=== PATIENT | male | born 1965 | race American Indian/Alaskan Native ===

== ENCOUNTER 2017-04-29 20:07 | Emergency (ER) | payer SELFPAY ==
[2017-04-29 20:19] VITALS: BP 144/97
[2017-04-29] MEDS ORDERED: BOOSTRIX IM ONE (21:11)
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
[2017-04-29] MEDS ORDERED: THERMAZENE 50 GRAM TP ONE ×3 (21:35→22:00)
== END 2017-04-29 21:49 | disposition home or self-care (01) ==
LOC: ED 20:07
DX: T25.221A Burn of second degree of right foot, initial encounter (principal); X11.8XXA Contact with other hot tap-water, initial encounter; Y93.89 Activity, other specified; Y92.89 Other specified places as the place of occurrence of the external cause; Y99.8 Other external cause status
CPT/HCPCS: 90471; 90715; 99282

== ENCOUNTER 2018-11-17 01:11 | Emergency (ER) | payer SELFPAY ==
[2018-11-17 01:25] VITALS: BP 114/84
--- NOTE | 2018-11-17 03:03 | Emergency Department Report ---
Chief Complaint: High BP Stated Complaint: HIGH BP Time Seen by Provider: 11/17/18 02:47 - HPI History of Present Illness: 53 y/o male comes in thinking his blood pressure. Patient denies any any chest pain headache or change of vision. Reports that he has right side - Exam Vital Signs: Vital Signs 11/17/18 01:23 Temperature 97.5 F L Pulse Rate 86 Respiratory 20 Rate Blood Pressure 114/84 O2 Sat by Pulse 96 Oximetry MSE screening note: Focused history and physical exam performed. Due to findings the following was ordered: Patient has a stable blood pressure. As the patient he can take [id number] pain medicine. ED Disposition for MSE Clinical Impression: Chronic pain Disposition: Z- MED SCREENING EXAM-LEFT Is pt being admited?: No Does the pt Need Aspirin: No Condition: Stable Referrals: [facility] [Provider Group] - 3-5 Days
== END 2018-11-17 03:37 | disposition left against medical advice (07) ==
LOC: ED 01:11
DX: G89.29 Other chronic pain (principal); I10 Essential (primary) hypertension; R07.89 Other chest pain; R51 Headache
CPT/HCPCS: 99282

== ENCOUNTER 2020-09-14 22:49 | Emergency (ER) | payer SELFPAY ==
[2020-09-15 01:10] VITALS: BP 123/62
[2020-09-15] MEDS ORDERED: IBUPROFEN 600 MG TAB PO ONE (01:37)
[2020-09-15] MEDS ORDERED: ACETAMINOPHEN 325 MG TAB PO ONE (01:37)
[2020-09-15] MEDS ORDERED: ONDANSETRON 4 MG/2 ML INJ IV PRN (05:12)
[2020-09-15] MEDS ORDERED: ACETAMINOPHEN 325 MG TAB PO PRN (05:12)
[2020-09-15] MEDS ORDERED: HYDROcodone/ACETAMINOPHEN 5-325 MG TAB PO PRN (05:12)
[2020-09-15] MEDS ORDERED: ALUM-MAG HYDROXIDE-SIMETHICONE 200-200-20MG/5ML ORAL LIQD 30 ML PO PRN (05:12)
[2020-09-15] MEDS ORDERED: MORPHINE 4 MG/1 ML INJ IV PRN (05:12)
[2020-09-15] MEDS ORDERED: oxyCODONE /ACETAMINOPHEN 5-325MG TAB PO PRN (05:12)
[2020-09-15] MEDS ORDERED: SENNOSIDES 8.6 MG TAB PO PRN (05:12)
[2020-09-15] MEDS ORDERED: FAMOTIDINE 20 MG/2 ML INJ IV SCH (10:00)
== END 2020-09-15 12:07 | disposition left against medical advice (07) ==
LOC: ED 22:49
DX: M54.9 Dorsalgia, unspecified (principal); M25.579 Pain in unspecified ankle and joints of unspecified foot; Z53.21 Procedure and treatment not carried out due to patient leaving prior to being seen by health care provider

== ENCOUNTER 2020-11-14 07:10 | Emergency (ER) | payer OTHER ==
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
[2020-11-14 07:18] VITALS: BP 123/80
== END 2020-11-14 08:52 | disposition home or self-care (01) ==
LOC: ED 07:10
DX: M54.31 Sciatica, right side (principal); I10 Essential (primary) hypertension; F17.200 Nicotine dependence, unspecified, uncomplicated; Z79.899 Other long term (current) drug therapy; Z59.0 Homelessness
CPT/HCPCS: 99283

== ENCOUNTER 2021-03-07 18:28 | Emergency (ER) | payer OTHER ==
[2021-03-07 18:33] VITALS: BP 160/90
--- NOTE | 2021-03-07 22:57 | XRay Report ---
LUMBAR SPINE 3 VIEWS INDICATION / CLINICAL INFORMATION: open wound: s/p lumbar kyphoplasty 9 months ago. Patient reports a wound draining on the right side. COMPARISON: None available. FINDINGS: VERTEBRAE: No acute fracture. Mild degenerative anterolisthesis of L5 on S1. No vertebroplasty cement in the lumbar spine. DISC SPACES / FACET JOINTS:Mild discogenic spondylosis at L5-S1. PARASPINAL SOFT TISSUES:No significant abnormality. ADDITIONAL FINDINGS: Internal fixation hardware of the right iliac wing. Signer Name: Jose Mera MD Signed: 03/07/2021 10:53 PM Workstation Name: [id number]
--- NOTE | 2021-03-07 23:56 | Emergency Department Report ---
ED Back Pain/Injury HPI - General Chief Complaint: Wound/Laceration Stated Complaint: SIDE PAIN, POSSIBLE WOUND INFECTION Source: EMS Limitations: No Limitations - History of Present Illness Initial Comments: Patient is a 56-year-old -[place] male with a history of hypertension and peptic ulcer disease who presented to the ED with complaint of acute onset persistent low back pain and bleeding postsurgical open wound on right lumbar sacral area for the last 12 hours. Patient states that he had an Internal fixation hardware of the right iliac wing about 9 months ago and 12 hours ago he woke up to bleeding from open wounds in the area where surgery was performed 9 months ago. Patient stated that he has also been having persistent pain and felt that the hardware may be dislodged and came to the ED for evaluation. Patient states that the surgery was performed in [facility] and he implored the EMS crew to take him to [facility] but they declined. Patient stated that the pain is mainly around the open postsurgical wound with intermittent bleeding. Patient denies fever, chills, nausea and vomiting, dizziness, syncope, numbness and tingling or weakness of lower extremities bilaterally, saddle paresthesia or urinary and bowel incontinence, nausea and vomiting, traumatic injury or fall, heavy lifting or abdominal pain. MD Complaint: back pain -: Sudden, hour(s) (12) Similar Symptoms Previously: No Place: home Radiation: none Severity: moderate Severity scale (0 -10): 4 Quality: dull, aching Consistency: constant Improves With: none Worsens With: movement, walking Context: unknown (spontaneous, s/p surgery of the illiac crest 9 months ago, wound dehiscence) Associated Symptoms: denies other symptoms. denies: confusion, weakness, chest pain, numbness, difficulty walking, cough, difficulty urinating, constipation, headaches, abdominal pain, loss of appetite, nausea/vomiting, rash, seizure, shortness of breath, syncope Treatments Prior to Arrival: acetaminophen - Related Data Previous Rx's Medication Instructions Recorded Last Taken Type Cephalexin [Keflex] 500 mg PO TID #21 capsule 10/18/13 Unknown Rx HYDROcodone/APAP 10-325 [[place] 1 each PO Q6HR PRN #20 tablet 10/18/13 Unknown Rx 10-325 mg TAB] Silver Sulfadiazine [Silvadene] 50 gm TP BID 7 Days cream..g. 04/29/17 Unknown Rx Ondansetron [Zofran Odt] 4 mg PO Q8HR PRN #14 tab.rapdis 02/24/18 Unknown Rx Ibuprofen [Motrin] 800 mg PO Q8HR PRN #20 tablet 11/14/20 Unknown Rx Lidocaine [Lidoderm] 1 each TP DAILY #30 adh..patch 11/14/20 Unknown Rx Ibuprofen [Motrin] 800 mg PO Q8HR PRN #30 tablet 03/07/21 Unknown Rx Sulfamethoxazole/Trimethoprim 1 each PO Q12H #20 tab 03/07/21 Unknown Rx [Bactrim DS TAB] traMADoL [Ultram] 50 mg PO Q6HR PRN #12 tablet 03/07/21 Unknown Rx Allergies Allergy/AdvReac Type Severity Reaction Status Date / Time No Known Allergies Allergy Verified 02/24/18 11:42 ED Review of Systems ROS: Stated complaint: SIDE PAIN, POSSIBLE WOUND INFECTION Other details as noted in HPI Constitutional: denies: chills, fever Eyes: denies: eye pain, eye discharge, vision change ENT: denies: ear pain, throat pain Respiratory: denies: cough, shortness of breath, wheezing Cardiovascular: denies: chest pain, palpitations Endocrine: no symptoms reported Gastrointestinal: denies: abdominal pain, nausea, diarrhea Genitourinary: denies: urgency, dysuria Musculoskeletal: back pain (Low back pain), other (Dehiscence of postsurgical wound). denies: joint swelling, arthralgia Skin: other (Postsurgical wound dehiscence in the lower back). denies: rash, lesions Neurological: denies: headache, weakness, paresthesias Psychiatric: denies: anxiety, depression Hematological/Lymphatic: denies: easy bleeding, easy bruising ED Past Medical Hx - Past Medical History Hx Hypertension: Yes Additional medical history: Peptic ulcers - Surgical History Additional Surgical History: right hip surgery - Social History Smoking Status: Current Every Day Smoker Substance Use Type: None - Medications Home Medications: Home Medications Medication Instructions Recorded Confirmed Last Taken Type Cephalexin [Keflex] 500 mg PO TID #21 capsule 10/18/13 Unknown Rx HYDROcodone/APAP 10-325 [[place] 1 each PO Q6HR PRN #20 tablet 10/18/13 Unknown Rx 10-325 mg TAB] Silver Sulfadiazine [Silvadene] 50 gm TP BID 7 Days cream..g. 04/29/17 Unknown Rx Ondansetron [Zofran Odt] 4 mg PO Q8HR PRN #14 tab.rapdis 02/24/18 Unknown Rx Ibuprofen [Motrin] 800 mg PO Q8HR PRN #20 tablet 11/14/20 Unknown Rx Lidocaine [Lidoderm] 1 each TP DAILY #30 adh..patch 11/14/20 Unknown Rx Ibuprofen [Motrin] 800 mg PO Q8HR PRN #30 tablet 03/07/21 Unknown Rx Sulfamethoxazole/Trimethoprim 1 each PO Q12H #20 tab 03/07/21 Unknown Rx [Bactrim DS TAB] traMADoL [Ultram] 50 mg PO Q6HR PRN #12 tablet 03/07/21 Unknown Rx ED Physical Exam - General Limitations: No Limitations General appearance: alert, in no apparent distress - Head Head exam: Present: atraumatic, normocephalic, normal inspection - Eye Eye exam: Present: normal appearance, PERRL, EOMI - ENT ENT exam: Present: normal exam, normal orophraynx, mucous membranes moist, TM's normal bilaterally, normal external ear exam - Neck Neck exam: Present: normal inspection, full ROM - Respiratory Respiratory exam: Present: normal lung sounds bilaterally. Absent: respiratory distress, wheezes, rales, rhonchi, chest wall tenderness, accessory muscle use, prolonged expiratory - Cardiovascular Cardiovascular Exam: Present: regular rate, normal rhythm, normal heart sounds. Absent: systolic murmur, diastolic murmur, rubs, gallop - GI/Abdominal GI/Abdominal exam: Present: soft, normal bowel sounds. Absent: distended, tenderness, guarding, hyperactive bowel sounds, hypoactive bowel sounds - Extremities Exam Extremities exam: Present: normal inspection, full ROM, normal capillary refill - Back Exam Back exam: Present: normal inspection, full ROM, tenderness (Palpable lumbosacral paraspinal musculoskeletal tenderness; postsurgical wound dehiscence in the right lumbosacral area), muscle spasm, paraspinal tenderness. Absent: CVA tenderness (L) - Neurological Exam Neurological exam: Present: alert, oriented X3, CN II-XII intact, normal gait, reflexes normal - Psychiatric Psychiatric exam: Present: normal affect, normal mood - Skin Skin exam: Present: warm, dry, intact, normal color, other (Postsurgical wound dehiscence on right lumbosacral area with localized tenderness). Absent: rash ED Course Vital Signs 03/07/21 18:32 Temperature 98.7 F Pulse Rate 86 Respiratory 18 Rate Blood Pressure 160/90 [Left] O2 Sat by Pulse 98 Oximetry ED Medical Decision Making - Radiology Data Radiology results: report reviewed, image reviewed [facility] [address] [place] [address] XRay Report Signed Patient: SANDHYA HILL MR#: [id number] : 1965 Acct:[id number] Age/Sex: 56 / M ADM Date: 03/07/21 Loc: ED Attending Dr: Ordering Physician: ELEANOR MOORE Date of Service: 03/07/21 Procedure(s): XR spine lumbosacral 2-3V Accession Number(s): [id number] cc: ELEANOR MOORE Fluoro Time In Minutes: LUMBAR SPINE 3 VIEWS INDICATION / CLINICAL INFORMATION: open wound: s/p lumbar kyphoplasty 9 months ago. Patient reports a wound draining on the right side. COMPARISON: None available. FINDINGS: VERTEBRAE: No acute fracture. Mild degenerative anterolisthesis of L5 on S1. No vertebroplasty cement in the lumbar spine. DISC SPACES / FACET JOINTS:Mild discogenic spondylosis at L5-S1. PARASPINAL SOFT TISSUES:No significant abnormality. ADDITIONAL FINDINGS: Internal fixation hardware of the right iliac wing. Signer Name: Jose Mera MD Signed: 03/07/2021 10:53 PM Workstation Name: [id number] Transcribed By: DT Dictated By: Juan Francisco Mera MD Electronically Authenticated By: Juan Francisco Mera MD Signed Date/Time: 03/07/212252 DD/ 50 TD/TT: Print - Medical Decision Making This is a 56-year-old -[place]ib[place] male with a history of hypertension and peptic ulcer disease who presented to the ED with complaint of acute onset persistent low back pain and bleeding postsurgical open wound on right lumbar sacral area for the last 12 hours. Patient states that he had an Internal fixation hardware of the right iliac wing about 9 months ago and 12 hours ago he woke up to bleeding from open wounds in the area where surgery was performed 9 months ago. Patient stated that he has also been having persistent pain and felt that the hardware may be dislodged and came to the ED for evaluation. Patient states that the surgery was performed in [facility] and he implored the EMS crew to take him to [facility] but they declined. Patient stated that the pain is mainly around the open postsurgical wound with intermittent bleeding. In the ED, patient is alert and oriented x3 and is not in distress. Patient is hemodynamically stable. The L-spine x-ray showed no acute fracture but mild degenerative anterolisthesis of L5 on S1. No vertebr oplasty cement in the lumbar spine. There is a mild discogenic spondylosis at L5-S1, and internal fixation hardware of the right iliac wing. Patient was treated for pain in the ED, and the wound were cleaned and dressed appropriately. The patient was therefore discharged home on antibiotics and pain medications and advised to follow-up with his spine surgeon in 3 to 5 days for reevaluation. - Differential Diagnosis Post-op wound infection; cellulitis; muscle spasm Critical care attestation.: If time is entered above; I have spent that time in minutes in the direct care of this critically ill patient, excluding procedure time. ED Disposition Clinical Impression: Spasm of muscle of lower back Postoperative dehiscence of skin wound Qualifiers: Encounter type: initial encounter Qualified Code(s): T81.31XA - Disruption of external operation (surgical) wound, not elsewhere classified, initial encounter Acute low back pain without sciatica Qualifiers: Back pain laterality: bilateral Qualified Code(s): M54.50 - Low back pain, unspecified Disposition: 01 HOME / SELF CARE / HOMELESS Is pt being admited?: No Does the pt Need Aspirin: No Condition: Stable Instructions: Muscle Cramps and Spasms, [id number], Wound Dehiscence, [id number] Additional Instructions: The L-spine x-ray showed the metallic hardware in the lower back or iliac crest is intact. Therefore take medications as advised with food, drink plenty of fluids, follow-up with your spine surgeon at [facility] in the next 3 to 5 days for reevaluation. Return to the ED immediately if symptoms get worse. Prescriptions: Sulfamethoxazole/Trimethoprim [Bactrim DS TAB] 1 each PO Q12H #20 tab Ibuprofen [Motrin] 800 mg PO Q8HR PRN #30 tablet PRN Reason: Pain , Severe (7-10) traMADoL [Ultram] 50 mg PO Q6HR PRN #12 tablet PRN Reason: Pain Referrals: PRIMARY CARE,MD [Primary Care Provider] - 3-5 Days Time of Disposition: 23:54 Print Language: BELARUSIAN
== END 2021-03-08 00:30 | disposition home or self-care (01) ==
LOC: ED 18:28
DX: M62.830 Muscle spasm of back (principal); T81.30XA Disruption of wound, unspecified, initial encounter; M54.50 Low back pain, unspecified; I10 Essential (primary) hypertension; Z98.890 Other specified postprocedural states; F17.200 Nicotine dependence, unspecified, uncomplicated
CPT/HCPCS: 72100; 99283

== ENCOUNTER 2021-06-12 08:15 | Emergency (ER) | payer OTHER ==
[2021-06-12 08:20] VITALS: BP 150/90
== END 2021-06-12 12:52 | disposition left against medical advice (07) ==
LOC: ED 08:15
DX: R51.9 Headache, unspecified (principal); Z53.21 Procedure and treatment not carried out due to patient leaving prior to being seen by health care provider

== ENCOUNTER 2021-07-24 07:50 | Emergency (ER) | payer OTHER ==
[2021-07-24 08:12] VITALS: BP 151/88
== END 2021-07-24 13:54 | disposition left against medical advice (07) ==
LOC: ED 07:50
DX: M25.551 Pain in right hip (principal); Z53.21 Procedure and treatment not carried out due to patient leaving prior to being seen by health care provider